=== PATIENT | female | born 1970 | race Asian ===

== ENCOUNTER 2020-11-26 22:42 | Emergency (ER) | payer SELFPAY ==
[~2020-11-26] VITALS: Ht 180.3 cm; Wt 56.4 kg
[2020-11-26 22:42] VITALS: BP 136/77
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
[2020-11-27] MEDS ORDERED: TRAM-48 PO (00:30)
--- NOTE | 2020-11-27 00:39 | RAD ---
Study: XR FINGER(S)_RIGHT 2+VIEWS Indication: Right thumb pain. Injury. Comparison: None. Findings: No displaced fracture involving the thumb. Alignment is within normal limits. An ossific fragment at the volar aspect of the thumb IP joint is chronic. Partially imaged distal ulna plate and screw fixation construct. Impression: No acute fracture or traumatic malalignment seen at the thumb. Electronically signed by: FARRAH WEAVER MD (11/27/2020 12:37 AM) [facility] [place]
== END 2020-11-27 01:33 | disposition home or self-care (01) ==
LOC: ER 22:42 → EEVIPCON 22:42 → ER 11-27 01:33
DX: S63.124A Dislocation of interphalangeal joint of right thumb, initial encounter (principal); R60.0 Localized edema; W18.39XA Other fall on same level, initial encounter; Y93.89 Activity, other specified; Y92.89 Other specified places as the place of occurrence of the external cause; Y99.8 Other external cause status
CPT/HCPCS: 29130; 73140; 99283

== ENCOUNTER 2020-12-26 15:57 | Emergency (ER) | payer BC ==
[~2020-12-26] VITALS: Ht 147.3 cm; Wt 52.0 kg
[~2020-12-26 15:57] MED LIST: TRAM-48 PO
[2020-12-26 16:40] VITALS: BP 114/74
[2020-12-26 16:59] LABS: BILIRUBIN,URINE NEGATIVE (NEG); CLARITY,URINE CLOUDY; COLOR,URINE YELLOW; NITRITE,URINE NEGATIVE (NEG); PROTEIN,URINE NEGATIVE (NEG-TRACE); UROBILINOGEN,URINE 0.2 mg/dL (0.2 mg/dL)
[2020-12-26 17:11] LABS: BACTERIA,URINE FEW /HPF (0-FEW); WBC,URINE TNTC /HPF (0-4)
--- NOTE | 2020-12-26 17:11 | PHYS DOC ---
Past Medical History Past Medical History: No Pertinent History, Other Additional Past Medical Histor: CHRONIC PAIN Past Surgical History: Other Additional Past Surgical Histo: RIGHT WRIST SURGERY Smoking Status: Never Smoker Alcohol Use: None General Adult EDM: Chief Complaint: PAIN ON URINATION HPI: HPI: Patient is a 50 year old female who presents with 2 days of urinary frequency and feeling the urge to urinate. She denies any pain with urination, vaginal discharge, concern for vaginal sexually-transmitted disease, abdominal pain, ba ck pain, nausea, vomiting, diarrhea, fever, dizziness, headache, chest pain, shortness of air. She has had a urinary tract infection in the past and states that it feels like that. She states otherwise she takes no medications daily. Currently has no pain. Review of Systems: Review of Systems: Constitutional: Denies fever or chills. [] Eyes: Denies change in visual acuity. [] HENT: Denies nasal congestion or sore throat. [] Respiratory: Denies cough or shortness of breath. [] Cardiovascular: Denies chest pain or edema. [] GI: Denies abdominal pain, nausea, vomiting, bloody stools or diarrhea. [] : Denies dysuria. + Urinary frequency [] Musculoskeletal: Denies back pain or joint pain. [] Integument: Denies rash. [] Neurologic: Denies headache, focal weakness or sensory changes. [] Endocrine: Denies polyuria or polydipsia. [] Lymphatic: Denies swollen glands. [] Psychiatric: Denies depression or anxiety. [] Heart Score: C/O Chest Pain: No Risk Factors: Risk Factors: DM, Current or recent (<one month) smoker, HTN, HLP, family history of CAD, obesity. Risk Scores: Score 0 - 3: 2.5% MACE over next 6 weeks - Discharge Home Score 4 - 6: 20.3% MACE over next 6 weeks - Admit for Clinical Observation Score 7 - 10: 72.7% MACE over next 6 weeks - Early Invasive Strategies Allergies: Allergies: Allergies Coded Allergies Type Severity Reaction Last Updated Verified Iodinated Contrast Media Allergy Severe 11/27/20 Yes Physical Exam: PE: Constitutional: Well developed, well nourished, no acute distress, non-toxic appearance. [] HENT: Normocephalic, atraumatic, bilateral external ears normal, oropharynx g[address], no oral exudates, nose normal. [] Eyes: PERRLA, EOMI, conjunctiva normal, no discharge. [] Neck: Normal range of motion, no tenderness, supple, no stridor. [] Cardiovascular:Heart rate regular rhythm, no murmur [] Lungs & Thorax: Bilateral breath sounds clear to auscultation [] Abdomen: Bowel sounds normal, soft, no tenderness, no masses, no pulsatile masses. [] Skin: Warm, dry, no erythema, no rash. [] Back: No tenderness, no CVA tenderness. [] Extremities: No tenderness, no cyanosis, no clubbing, ROM intact, no edema. [] Neurologic: Alert and oriented X 3, normal motor function, normal sensory function, no focal deficits noted. [] Psychologic: Affect normal, judgement normal, mood normal. Normal physical exam [] Current Patient Data: Labs: Laboratory Tests Test 12/26/20 16:29 POC Urine HCG, Qualitative Hcg negative (Negative) Vital Signs: Vital Signs Date Time Temp Pulse Resp B/P (MAP) Pulse Ox O2 Delivery O2 Flow Rate FiO2 12/26/20 16:40 98.8 70 16 114/74 (87) 99 Room Air 98.8 EKG: EKG: [] Radiology/Procedures: Radiology/Procedures: [] Course & Med Decision Making: Course & Med Decision Making Pertinent Labs and Imaging studies reviewed. (See chart for details) See HPI. Alert and oriented x4. Ambulatory with a steady gait. Speaks in full clear sentences. No CVA tenderness. Abdomen is soft and nontender. Vital signs are within normal limits. Skin pink warm and dry. Urinalysis shows infection. I will treat her with antibiotics. [] [place] Disclaimer: Hanna Disclaimer: This electronic medical record was generated, in whole or in part, using a voice recognition dictation system. Departure Departure Impression: Primary Impression: Urinary tract infection Qualified Codes: N39.0 - Urinary tract infection, site not specified Disposition: HOME / SELF CARE / HOMELESS Condition: STABLE Referrals: NO PCP (PCP) Patient Instructions: Urinary Tract Infection Additional Instructions: Drink plenty of fluids. Follow-up with your primary care provider if needed. Take antibiotic as prescribed and with food until it is gone. Take ibuprofen or Tylenol for pain. Scripts Nitrofurantoin Monohyd/M-Cryst (MACROBID 100 MG CAPSULE) 100 Mg Capsule 1 CAP PO BID for 7 Days, #14 CAP 0 Refills Prov: JENN DULNAP APRN 12/26/20 JENN DUNLAP APRN December 26, 2020 17:11
[2020-12-26] MEDS ORDERED: NITR100C62 PO (17:16)
== END 2020-12-26 18:00 | disposition home or self-care (01) ==
LOC: ER 15:57
DX: N39.0 Urinary tract infection, site not specified (principal); G89.29 Other chronic pain; Z91.041 Radiographic dye allergy status
CPT/HCPCS: 81001; 81025; 87086; 99283

== ENCOUNTER 2021-01-24 19:05 | Emergency (ER) | payer BC ==
[~2021-01-24] VITALS: Ht 149.9 cm; Wt 52.7 kg
[~2021-01-24 19:05] MED LIST changes: +NITR100C62 PO
[2021-01-24 19:20] VITALS: BP 122/57
--- NOTE | 2021-01-24 19:26 | PHYS DOC ---
Past Medical History Past Medical History: No Pertinent History, UTI, Other Additional Past Medical Histor: CHRONIC PAIN (FERNANDOSHELLEY Anne [employer]PATCH[employer]) Past Surgical History: Other Additional Past Surgical Histo: RIGHT WRIST SURGERY (FERNANDOSHELLEY Anne [employer]IE[employer]ICE) Smoking Status: Never Smoker Alcohol Use: None (SHELLEY KING Day[employer]) General Adult EDM: Chief Complaint: PAIN ON URINATION HPI: HPI: Patient is a 50 year old female who presents to the ED today complaining of pressure when she voids. She states she was seen in the ED 2 weeks ago for the same complaint, was diagnosed with UTI and sent home with Macrobid. She states she completed taking the medicine and felt better until yesterday when her symptoms restarted. Denies any nausea, vomiting, fever or flank pain. (FERNANDOSHELLEY Anne [employer]ICE) Review of Systems: Review of Systems: Constitutional: Denies fever or chills. [] Eyes: Denies change in visual acuity. [] HENT: Denies nasal congestion or sore throat. [] Respiratory: Denies cough or shortness of breath. [] Cardiovascular: Denies chest pain or edema. [] GI: Denies abdominal pain, nausea, vomiting, bloody stools or diarrhea. [] : Reports pressure when she voids, denies denies dysuria. [] Musculoskeletal: Denies back pain or joint pain. [] Integument: Denies rash. [] Neurologic: Denies headache, focal weakness or sensory changes. [] Psychiatric: Denies depression or anxiety. [] (SHELLEY KING [employer]IEF [employer]ER [employer]ICE) Heart Score: C/O Chest Pain: N/A Risk Factors: Risk Factors: DM, Current or recent (<one month) smoker, HTN, HLP, family history of CAD, obesity. Risk Scores: Score 0 - 3: 2.5% MACE over next 6 weeks - Discharge Home Score 4 - 6: 20.3% MACE over next 6 weeks - Admit for Clinical Observation Score 7 - 10: 72.7% MACE over next 6 weeks - Early Invasive Strategies (SHELLEY KING [employer]IEF [employer]PATCHER SERVICE) Allergies: Allergies: Allergies Coded Allergies Type Severity Reaction Last Updated Verified Iodinated Contrast Media Allergy Severe 11/27/20 Yes (SHELLEY KING [employer]) Physical Exam: PE: Constitutional: Well developed, well nourished, no acute distress, non-toxic appearance. [] HENT: Normocephalic, atraumatic, bilateral external ears normal, oropharynx moist, no oral exudates, nose normal. [] Eyes: PERRLA, EOMI, conjunctiva normal, no discharge. [] Neck: Normal range of motion, no tenderness, supple, no stridor. [] Cardiovascular:Heart rate regular rhythm, no murmur [] Lungs & Thorax: Bilateral breath sounds clear to auscultation [] Abdomen: Bowel sounds normal, soft, no tenderness, no masses, no pulsatile masses. [] Skin: Warm, dry, no erythema, no rash. [] Back: No tenderness, no CVA tenderness. [] Extremities: No tenderness, no cyanosis, no clubbing, ROM intact, no edema. [] Neurologic: Alert and oriented X 3, normal motor function, normal sensory function, no focal deficits noted. [] Psychologic: Affect normal, judgement normal, mood normal. [] (SHELLEY KING APRN) Current Patient Data: Labs: Laboratory Tests Test 01/24/21 19:17 POC Urine HCG, Qualitative Hcg negative (Negative) (SHELLEY KING APRN) EKG: EKG: [] (SHELLEY KING APRN) Radiology/Procedures: Radiology/Procedures: [] (SHELLEY KING APRN) Course & Med Decision Making: Course & Med Decision Making Pertinent Labs and Imaging studies reviewed. (See chart for details) This is a 50-year-old female patient presenting to the ED today complaining of pressure when she voids, symptoms were present 2 weeks ago, she reports being treated for UTI with Macrobid and symptoms were gone until yesterday when symptoms restarted. Positive for UTI, given Rocephin IM and discharged on cephalexin. Follow-up with primary care doctor. Patient refused Rocephin and cephalexin saying she is allergic to eat, her allergy is a rash. She spent an incredible amount of time complaining about Rocephin. Informed that she is resistant to Bactrim and she already tried Macrobid with no improvement. At this point I gave a prescription for Levaquin as i was running out of choices on her antibiotics. (SHELLEY KING APRN) Course & Med Decision Making Patients Care and treatment plan provided by ER Nurse Practitioner. I was available for consult. Patient's chart reviewed. (CIRO KENNEDY DO) Hanna Disclaimer: Hanna Disclaimer: This electronic medical record was generated, in whole or in part, using a voice recognition dictation system. (SHELLEY KING APRN) Departure Departure Impression: Primary Impression: Urinary tract infection Qualified Codes: N39.0 - Urinary tract infection, site not specified; R31.9 - Hematuria, unspecified Disposition: HOME / SELF CARE / HOMELESS Condition: STABLE Referrals: NO PCP (PCP) Follow-up in 1 to 2 weeks Patient Instructions: Urinary Tract Infection Additional Instructions: You were evaluated in the emergency room and you have urinary tract infection. Please take the prescribed antibiotics until completed. Please push fluids. Follow-up with your primary care doctor in the course of next week Scripts Levofloxacin (LEVOFLOXACIN) 500 Mg Tablet 1 TAB PO DAILY, #7 TAB Prov: SHELLEY KING APRN 01/24/21 Cephalexin (CEPHALEXIN) 500 Mg Tablet 1 TAB PO BID, #14 TAB Prov: SHELLEY KING APRN 01/24/21 SHELLEY KING APRN Jan 24, 2021 19:26 CIRO KENNEDY DO Jan 25, 2021 05:04
[2021-01-24 19:32] LABS: BILIRUBIN,URINE NEGATIVE (NEG); CLARITY,URINE CLEAR; COLOR,URINE YELLOW; NITRITE,URINE NEGATIVE (NEG); PROTEIN,URINE NEGATIVE (NEG-TRACE); UROBILINOGEN,URINE 0.2 mg/dL (0.2 mg/dL)
[2021-01-24 19:43] LABS: BACTERIA,URINE MODERATE /HPF (0-FEW); RBC,URINE TNTC /HPF (0-2); WBC,URINE TNTC /HPF (0-4)
[2021-01-24] MEDS ORDERED: cefTRIAXone IM 1 GM VIAL IM ONE (19:45)
[2021-01-24] MEDS ORDERED: LIDOCAINE 1% PF 2 ML VIAL. INJ ONE (19:45)
[2021-01-24] MEDS ORDERED: CEPH500T PO (19:55)
[2021-01-24] MEDS ORDERED: LEVO500T8 PO (20:40)
== END 2021-01-24 20:30 | disposition home or self-care (01) ==
LOC: ER 19:05
DX: N39.0 Urinary tract infection, site not specified (principal); R31.0 Gross hematuria; G89.29 Other chronic pain; Z91.041 Radiographic dye allergy status
CPT/HCPCS: 81001; 81025; 87086; 99283

== ENCOUNTER 2021-10-29 03:43 | Emergency (ER) | payer BC ==
[~2021-10-29] VITALS: Ht 149.9 cm; Wt 53.6 kg
[~2021-10-29 03:43] MED LIST changes: +CEPH500T PO; +LEVO500T9 PO
[2021-10-29 04:06] VITALS: BP 122/68
--- NOTE | 2021-10-29 04:31 | PHYS DOC ---
Past Medical History Past Medical History: No Pertinent History, UTI, Other Additional Past Medical Histor: wrist pain Past Surgical History: Other Additional Past Surgical Histo: Hand Smoking Status: Never Smoker Alcohol Use: None General Adult EDM: Chief Complaint: ANXIETY/PANIC ATTACK HPI: HPI: Patient is a 51 year old [f__sex] who presents with [] Review of Systems: Review of Systems: Constitutional: Denies fever or chills. [] Eyes: Denies change in visual acuity. [] HENT: Denies nasal congestion or sore throat. [] Respiratory: Denies cough or shortness of breath. [] Cardiovascular: Denies chest pain or edema. [] GI: Denies abdominal pain, nausea, vomiting, bloody stools or diarrhea. [] : Denies dysuria. [] Musculoskeletal: Denies back pain or joint pain. [] Integument: Denies rash. [] Neurologic: Denies headache, focal weakness or sensory changes. [] Endocrine: Denies polyuria or polydipsia. [] Lymphatic: Denies swollen glands. [] Psychiatric: Denies depression or anxiety. [] Heart Score: Risk Factors: Risk Factors: DM, Current or recent (<one month) smoker, HTN, HLP, family history of CAD, obesity. Risk Scores: Score 0 - 3: 2.5% MACE over next 6 weeks - Discharge Home Score 4 - 6: 20.3% MACE over next 6 weeks - Admit for Clinical Observation Score 7 - 10: 72.7% MACE over next 6 weeks - Early Invasive Strategies Allergies: Allergies: Allergies Coded Allergies Type Severity Reaction Last Updated Verified Iodinated Contrast Media Allergy Severe 11/27/20 Yes Fish Containing Products Allergy Unknown 01/24/21 Yes ceftriaxone Allergy Unknown Rash 01/24/21 Yes Physical Exam: PE: Constitutional: Well developed, well nourished, no acute distress, non-toxic appearance. [] HENT: Normocephalic, atraumatic, bilateral external ears normal, oropharynx moist, no oral exudates, nose normal. [] Eyes: PERRLA, EOMI, conjunctiva normal, no discharge. [] Neck: Normal range of motion, no tenderness, supple, no stridor. [] Cardiovascular:Heart rate regular rhythm, no murmur [] Lungs & Thorax: Bilateral breath sounds clear to auscultation [] Abdomen: Bowel sounds normal, soft, no tenderness, no masses, no pulsatile masses. [] Skin: Warm, dry, no erythema, no rash. [] Back: No tenderness, no CVA tenderness. [] Extremities: No tenderness, no cyanosis, no clubbing, ROM intact, no edema. [] Neurologic: Alert and oriented X 3, normal motor function, normal sensory function, no focal deficits noted. [] Psychologic: Affect normal, judgement normal, mood normal. [] Current Patient Data: Vital Signs: Vital Signs Date Time Temp Pulse Resp B/P (MAP) Pulse Ox O2 Delivery O2 Flow Rate FiO2 10/29/21 04:06 97.8 88 16 122/68 (86) 98 Room Air 97.8 EKG: EKG: [] Radiology/Procedures: Radiology/Procedures: [] Course & Med Decision Making: Course & Med Decision Making Pertinent Labs and Imaging studies reviewed. (See chart for details) [] Dragon Disclaimer: Dragon Disclaimer: This electronic medical record was generated, in whole or in part, using a voice recognition dictation system. Departure Departure Impression: Primary Impression: Anxiety Disposition: 01 HOME / SELF CARE / HOMELESS Condition: STABLE Referrals: NO PCP (PCP) Patient Instructions: Anxiety and Panic Attacks CIRO KENNEDY I DO Oct 29, 2021 04:31
== END 2021-10-29 04:36 | disposition home or self-care (01) ==
LOC: ER 03:43
DX: F41.9 Anxiety disorder, unspecified (principal); Z87.440 Personal history of urinary (tract) infections; Z91.041 Radiographic dye allergy status; Z91.013 Allergy to seafood; Z88.8 Allergy status to other drugs, medicaments and biological substances
CPT/HCPCS: 99281